=== PATIENT | female | born 1985 | race Caucasian/White ===

== ENCOUNTER 2018-05-16 18:44 | Emergency (ER) | payer BC ==
[~2018-05-16] VITALS: Ht 157.5 cm; Wt 54.4 kg
[2018-05-16 18:48] VITALS: BP_SYST 147
--- NOTE | 2018-05-16 19:09 | NUR ---
Patient to ER bed 4 to gown for evaluation. Side rails up.
--- NOTE | 2018-05-16 19:30 | NUR ---
Pt came to the ED with boyfriend for a complaing of R hand pain and L knee pain post fall after sliding on cement after going for a run around 1630. Pain is 3/10. Pt able to ambulate and put pressure on L leg, no signs of acute distress. Denies TDAP up to date. Denies n/v/d or fever. No other complaints/injuries noted. Will cont. to monitor.
--- NOTE | 2018-05-16 20:00 | NUR ---
ER at bedside examining patient.
[2018-05-16] MEDS ORDERED: DIPH-TET-PERTUS Vaccine 0.5 ML VIAL (ADACEL) I.M. ONE (21:00)
[2018-05-16] MEDS ORDERED: BACITRACIN 1 GM OINT TP ONE ×2 (21:00→21:01)
--- NOTE | 2018-05-16 21:17 | NUR ---
Pt medicated with TDAP IM per MD order. Tolerated well. Will cont. to monitor.
[2018-05-16 21:31] VITALS: BP_SYST 147
--- NOTE | 2018-05-16 21:31 | NUR ---
Patient given written and verbal discharge instructions and verbalizes understanding. ER MD Dr. Moscoso discussed with patient the results and treatment provided. Patient in stable condition. ID arm band removed. Rx of Naprosyn and keflex given. Patient educated on pain management and to follow up with PMD within 2-3 days. Pain Scale 2/10, pt able ambulate with steady gait no signs of acute distress. Opportunity for questions provided and answered. Medication side effect fact sheet provided.
== END 2018-05-16 21:31 | disposition home or self-care (01) ==
LOC: SED 18:44
DX: S60.511A Abrasion of right hand, initial encounter (principal); S80.212A Abrasion, left knee, initial encounter; R03.0 Elevated blood-pressure reading, without diagnosis of hypertension; Z88.0 Allergy status to penicillin; W17.89XA Other fall from one level to another, initial encounter; Y93.89 Activity, other specified; Y92.89 Other specified places as the place of occurrence of the external cause; Y99.8 Other external cause status
CPT/HCPCS: 81025; 90715; 99283